=== PATIENT | female | born 1995 | race African-American/Black ===

== ENCOUNTER 2021-10-11 15:37 | Emergency (ER) | payer OTHER ==
[2021-10-11 15:57] VITALS: BMI 42.5
[2021-10-11 19:21] LABS: BASO % 0.3 % (0-2.0); HEMATOCRIT 37.6 % (32.4-45.2); HEMOGLOBIN 12.1 GM/dL (10.7-15.3); LYMPH % 2.1 % (8-40); MCH 24.9 pg (25.7-33.7); MCHC 32.1 g/dl (32.0-36.0); MEAN CELL VOLUME 77.5 fl (80-96); MEAN PLT VOLUME 9.2 fl (7.5-11.1); MONO % 9.1 % (3.8-10.2); NEUT % 88.5 % (42.8-82.8); PLATELET COUNT 268 10^3/uL (134-434); RBC 4.85 M/mm3 (3.60-5.2); RDW 16.5 % (11.6-15.6); WHITE BLOOD COUNT 13.1 K/mm3 (4.0-10.0)
[2021-10-11 20:03] LABS: CHLORIDE 105 mmol/L (98-107); SODIUM 139 mmol/L (136-145)
[2021-10-11 20:05] LABS: CALCIUM 8.9 mg/dL (8.5-10.1)
[2021-10-11 20:07] LABS: ALBUMIN 3.6 g/dl (3.4-5.0); ANION GAP 10 MMOL/L (8-16); CO2 24 mmol/L (21-32); GLUCOSE,RANDOM 93 mg/dL (74-106)
[2021-10-11 20:09] LABS: CREATININE 0.9 mg/dL (0.55-1.3); SGOT/AST 16 U/L (15-37); SGPT/ALT 25 U/L (13-61)
[2021-10-11 20:10] LABS: BILIRUBIN,TOTAL 0.2 mg/dL (0.2-1); TOT PROT 8.2 g/dl (6.4-8.2)
[2021-10-11 20:12] LABS: ALK PHOS 63 U/L (45-117)
[2021-10-11] MEDS ORDERED: LACTATED RINGERS SOLUTION 1000 ML INFUS.BAG IV ONE (21:25)
[2021-10-11] MEDS ORDERED: diazePAM 5 MG TABLET PO ONE (21:25)
[2021-10-11 21:27] VITALS: RESP 18
[2021-10-11] MEDS ORDERED: ACETAMINOPHEN 1000 MG/100 ML BAG IVPB ONE (21:28)
[2021-10-11] MEDS ORDERED: diazePAM 5 MG TABLET ONE (21:32)
[2021-10-11] MEDS ORDERED: ACETAMINOPHEN INJECTION 100 ML IVPB ONE (21:33)
[2021-10-11] MEDS ORDERED: SODIUM CHLORIDE 0.9% 500 ML INFUS.BAG IV ONE (22:08)
[2021-10-11 22:51] VITALS: BP 109/71; PULSE 107; TEMP 99.6
[2021-10-12 01:15] LABS: PHENCYCLIDINE,URINE NEGATIVE (NEGATIVE); URINE AMPHETAMINES NEGATIVE (NEGATIVE); URINE BARBITURATES NEGATIVE (NEGATIVE)
[2021-10-12 01:16] LABS: COCAINE, UR NEGATIVE (NEGATIVE); METHADONE, UR NEGATIVE (NEGATIVE); OPIATES, URI NEGATIVE (NEGATIVE); URINE BENZODIAZEPINES NEGATIVE (NEGATIVE)
[2021-10-12 01:19] LABS: HCG,QUALITATIVE URINE Negative; URINE APPEARANCE CLEAR; URINE BILIRUBIN NEGATIVE (NEGATIVE); URINE COLOR YELLOW; URINE GLUCOSE (UA) NEGATIVE (NEGATIVE); URINE KETONE NEGATIVE (NEGATIVE); URINE LEUK ESTERASE 1+ (NEGATIVE); URINE NITRITE NEGATIVE (NEGATIVE); URINE PROTEIN NEGATIVE (NEGATIVE); URINE UROBILINOGEN 0.2 mg/dL (0.2-1.0)
[2021-10-12 04:17] LABS: URINE RBC 4.1 /uL (0-23.9)
[2021-10-12 04:18] LABS: EPI CELLS 29.2 /uL (0-25.1); HYALINE CASTS 0.25 /uL (0-3.1); URINE BACTERIA 1028.5 /uL (0-1359)
== END 2021-10-12 02:29 | disposition home or self-care (01) ==
LOC: JERFT 15:37 → JER 15:37
PROC: 3E033GC Introduction of Other Therapeutic Substance into Peripheral Vein, Percutaneous Approach (ICD-10-PCS; principal; 2021-10-11)
DX: R44.0 Auditory hallucinations (principal); R44.1 Visual hallucinations
CPT/HCPCS: 0241U-QW; 36415; 71045-TC-FY; 80053; 80307; 81003; 84443; 84703; 85025; 93005; 93010; 99285-25

== ENCOUNTER 2021-12-27 04:44 | Day surgery (SDC) | payer OTHER, BC ==
[2021-12-26 12:59] VITALS: BMI 41.5
[2021-12-27] MEDS ORDERED: TETRACAINE/BENZOCAINE/BUTAMBEN 20 GM SPR TP ONE (10:40)
[2021-12-27 11:12] VITALS: TEMP 97.5
[2021-12-27 11:53] VITALS: BP 132/83; PULSE 70; RESP 15
== END 2021-12-27 12:15 | disposition home or self-care (01) ==
LOC: JASU-ENDO 04:44
PROVIDERS: ATTEND Internal Medicine Gastroenterology
PROC: 0DB78ZX Excision of Stomach, Pylorus, Via Natural or Artificial Opening Endoscopic, Diagnostic (ICD-10-PCS; principal; 2021-12-27 10:15)
DX: K29.50 Unspecified chronic gastritis without bleeding (principal)
CPT/HCPCS: 81025; 88305-TC; 88342-TC

== ENCOUNTER 2023-09-12 21:48 | Inpatient (IN) | payer BC, OTHER ==
[2023-09-12 22:04] VITALS: RESP 18; BMI 44.2
[2023-09-12] MEDS ORDERED: ACETAMINOPHEN INJECTION 100 ML IVPB ONE (23:25)
[2023-09-12] MEDS ORDERED: ONDANSETRON 4 MG/2 ML VIAL ONE (23:25)
[2023-09-12 23:55] LABS: BASO % 0.1 % (0-2.0); EOS % 0.1 % (0-4.5); HEMATOCRIT 37.6 % (32.4-45.2); HEMOGLOBIN 12.4 GM/dL (10.7-15.3); LYMPH % 6.8 % (8-40); MCH 24.5 pg (25.7-33.7); MCHC 32.9 g/dl (32.0-36.0); MEAN CELL VOLUME 74.5 fl (80-96); MEAN PLT VOLUME 8.4 fl (7.5-11.1); MONO % 6.2 % (3.8-10.2); NEUT % 86.8 % (42.8-82.8); PLATELET COUNT 281 10^3/uL (134-434); RBC 5.05 M/mm3 (3.60-5.2); RDW 17.1 % (11.6-15.6); WHITE BLOOD COUNT 13.7 K/mm3 (4.0-10.0)
[2023-09-12 23:56] LABS: EPI CELLS 14 /uL (0-25.1); HYALINE CASTS 1 /uL (0-3.1); PH,URINE 5.5 (5.0-8.0); URINE APPEARANCE CLEAR; URINE BACTERIA 201 /uL (0-1359); URINE BILIRUBIN NEGATIVE (NEGATIVE); URINE COLOR YELLOW; URINE GLUCOSE (UA) NEGATIVE (NEGATIVE); URINE KETONE TRACE (NEGATIVE); URINE LEUK ESTERASE NEGATIVE (NEGATIVE); URINE NITRITE NEGATIVE (NEGATIVE); URINE PROTEIN TRACE (NEGATIVE); URINE RBC 32 /uL (0-23.9); URINE UROBILINOGEN 0.2 mg/dL (0.2-1.0); URINE WBC 9 /uL (0-25.8)
[2023-09-13] MEDS: SODIUM CHLORIDE 0.9% 500 ML INFUS.BAG IV ONE (00:08)
[2023-09-13] MEDS: ONDANSETRON 4 MG/2 ML VIAL IVPUSH ONE (00:08)
[2023-09-13] MEDS: ACETAMINOPHEN 1000 MG/100 ML BAG IVPB ONE (00:08)
[2023-09-13 00:20] LABS: INR 1.16 (0.83-1.09); PROTHROMBIN TIME (PATIENT) 13.3 SEC (9.7-13.0)
[2023-09-13 00:22] LABS: ACTIVATED PTT 27.3 SECONDS (25.2-36.5)
[2023-09-13 01:31] LABS: POTASSIUM 3.7 mmol/L (3.5-5.1)
[2023-09-13 01:33] LABS: ALBUMIN 3.4 g/dl (3.4-5.0); BLOOD UREA NITROGEN 11.2 mg/dL (7-18); CALCIUM 8.8 mg/dL (8.5-10.1)
[2023-09-13 01:36] LABS: CREATININE 0.9 mg/dL (0.55-1.3)
[2023-09-13 01:38] LABS: BILIRUBIN,TOTAL 0.2 mg/dL (0.2-1)
[2023-09-13 04:03] LABS: MAGNESIUM 2.1 mg/dL (1.8-2.4)
[2023-09-13] MEDS ORDERED: KETOROLAC TROMETHAMINE 15 MG/ML VIAL ONE (06:53)
[2023-09-13] MEDS: KETOROLAC TROMETHAMINE 15 MG/ML VIAL IVPUSH ONE (06:59)
[2023-09-13] MEDS ORDERED: ACETAMINOPHEN 325 MG TABLET (FP) ONE (07:57)
[2023-09-13] MEDS: ACETAMINOPHEN 500 MG TABLET (FP) PO ONE (08:13)
[2023-09-13] MEDS: LACTATED RINGERS SOLUTION 1,000 ML/1,000 ML INFUS.BAG IV SCH (14:33)
[2023-09-14 10:18] LABS: BASO % 0.3 % (0-2.0); EOS % 0.4 % (0-4.5); HEMATOCRIT 34.8 % (32.4-45.2); HEMOGLOBIN 11.3 GM/dL (10.7-15.3); LYMPH % 18.7 % (8-40); MCH 24.5 pg (25.7-33.7); MCHC 32.3 g/dl (32.0-36.0); MEAN CELL VOLUME 75.9 fl (80-96); MEAN PLT VOLUME 9.1 fl (7.5-11.1); MONO % 13.1 % (3.8-10.2); NEUT % 67.5 % (42.8-82.8); PLATELET COUNT 263 10^3/uL (134-434); RBC 4.59 M/mm3 (3.60-5.2); RDW 17.3 % (11.6-15.6); RETICULOCYTES 1.17 % (0.5-1.5); WHITE BLOOD COUNT 7.1 K/mm3 (4.0-10.0)
[2023-09-14 10:42] LABS: POTASSIUM 3.7 mmol/L (3.5-5.1)
[2023-09-14 10:48] LABS: BLOOD UREA NITROGEN 11.6 mg/dL (7-18); CALCIUM 8.1 mg/dL (8.5-10.1)
[2023-09-14 10:52] LABS: CREATININE 0.8 mg/dL (0.55-1.3)
[2023-09-14 10:53] LABS: BILIRUBIN,TOTAL 0.2 mg/dL (0.2-1); TOT PROT 6.8 g/dl (6.4-8.2)
[2023-09-14 11:28] LABS: ALBUMIN 2.7 g/dl (3.4-5.0)
[2023-09-14] MEDS: IRON SUCROSE INJECTION 200 MG in SODIUM CHLORIDE 100 ML IVPB ONE (18:02)
[2023-09-14] MEDS: ACETAMINOPHEN 1000 MG/100 ML BAG IVPB ONE (23:01)
[2023-09-15 09:15] LABS: BASO % 0.5 % (0-2.0); EOS % 1.2 % (0-4.5); HEMATOCRIT 36.9 % (32.4-45.2); HEMOGLOBIN 11.9 GM/dL (10.7-15.3); LYMPH % 24.8 % (8-40); MCH 24.3 pg (25.7-33.7); MCHC 32.3 g/dl (32.0-36.0); MEAN CELL VOLUME 75.3 fl (80-96); MEAN PLT VOLUME 8.8 fl (7.5-11.1); MONO % 11.2 % (3.8-10.2); NEUT % 62.3 % (42.8-82.8); PLATELET COUNT 277 10^3/uL (134-434); RBC 4.89 M/mm3 (3.60-5.2); RDW 17.1 % (11.6-15.6); WHITE BLOOD COUNT 6.1 K/mm3 (4.0-10.0)
[2023-09-15 09:34] LABS: POTASSIUM 3.6 mmol/L (3.5-5.1)
[2023-09-15 09:37] LABS: CALCIUM 8.7 mg/dL (8.5-10.1)
[2023-09-15 09:38] LABS: BLOOD UREA NITROGEN 9.9 mg/dL (7-18)
[2023-09-15 09:41] LABS: CREATININE 0.8 mg/dL (0.55-1.3)
[2023-09-15 11:49] VITALS: PULSE 91
[2023-09-15 13:47] VITALS: BP 101/48; TEMP 98.5
[2023-09-16 18:07] LABS: GLIADIN ANTIBODY IGA 2 units (0-19); GLIADIN ANTIBODY IGG 3 units (0-19); TRANSGLUTAMINASE IGG 3 U/mL (0-5)
== END 2023-09-15 15:48 | disposition home or self-care (01) | DRG 392 ==
LOC: JER 21:48 → JERBED 09-13 08:47 → J6S 09-13 19:03
PROVIDERS: ADMIT Family Medicine; ATTEND Family Medicine
DX: A09 Infectious gastroenteritis and colitis, unspecified (principal); K92.1 Melena; K64.9 Unspecified hemorrhoids
CPT/HCPCS: 36415; 74177-TC; 80048; 80053; 81003; 82272; 82728; 82784; 83516; 83540; 83550; 83735; 83993; 84100; 84703; 85025; 85045; 85610; 85730; 86140; 86255; 86671; 86850; 86900; 86901; 87045; 87046; 87086; 87186; 87205; 87324; 87449; 99285-25; G0378; J0131; J1756; Q9967